=== PATIENT | female | born 1995 | race Caucasian/White ===

== ENCOUNTER 2024-06-03 11:27 | Outpatient (REF) | payer OTHER, SELFPAY ==
--- NOTE | ~2024-06-03 | US_ITS ---
EXAMINATION: US TRIPLEX LOWER EXTREMITY, RIGHT CLINICAL INFORMATION: Right calf pain COMPARISON: None available. TECHNIQUE: Color-flow triplex imaging with spectral analysis and compression Doppler were performed on the right lower extremity. FINDINGS: Respiratory variation, normal compression and augmented flow are noted throughout the right lower extremity. The visualized common femoral vein, superficial femoral vein, profunda femoral vein, popliteal vein and midcalf peroneal and posterior tibial venous segments show no evidence of deep venous thrombosis. There is no Stone's cyst. US/US venous duplex LE RT IMPRESSION: No evidence of deep venous thrombosis involving the right lower extremity. Electronically signed by: Dawit Ibrahim MD 06/03/2024 12:59 PM EDT
== END 2024-06-03 11:28 | disposition home or self-care (01) ==
LOC: HO.US 11:27
PROVIDERS: Visit Provider Physician Assistant Medical
DX: M79.661 Pain in right lower leg (principal)
CPT/HCPCS: 93971

== ENCOUNTER 2024-09-30 17:14 | Outpatient (REF) | payer SELFPAY ==
--- NOTE | ~2024-09-30 | XR_ITS ---
CLINICAL HISTORY: COUGH, SOB 2 view chest x-ray Comparison: None Findings: No consolidation or effusion. Heart size is normal. No acute fracture. IMPRESSION: 1. No acute findings. This document has been electronically signed by: Rajesh Godinez MD on 09/30/2024 18:08:16
== END 2024-09-30 17:15 | disposition home or self-care (01) ==
LOC: HO.XRAY 17:14
PROVIDERS: Visit Provider Physician Assistant Medical
DX: R05.9 Cough, unspecified (principal)
CPT/HCPCS: 71046

== ENCOUNTER → 2024-09-30 17:50 | Outpatient (BNV) | payer SELFPAY | PROVIDERS: Visit Provider Specialist | DX: R05.9 Cough, unspecified (principal) | CPT/HCPCS: 71046 ==

== ENCOUNTER 2024-12-07 09:31 | Outpatient (REF) | payer OTHER, SELFPAY ==
--- NOTE | ~2024-12-07 | MR_ITS ---
CLINICAL HISTORY: S93.402A - Sprain of unspecified ligament of left ankle, initial encounter MR left ankle without gadolinium Comparison: None Findings: No acute fracture or pathologic bone lesion. Small/physiological posterior subtalar joint effusion. Chronic grade 2 sprain of the anterior talofibular ligament. Mild thickening of the distal calcaneofibular ligament due to chronic grade 2 sprain. Grade 1, to low-grade, grade 2 sprain of the deep deltoid ligament. Syndesmotic and spring ligaments are intact. Small amount of fluid in the flexor hallucis longus tendon sheath is likely reactive in nature. Flexor, extensor, and peroneal tendons are intact. Achilles tendon is intact. Medial, lateral, and central bands of the plantar fascia are intact. IMPRESSION: 1. Chronic grade 2 sprain of the anterior talofibular and calcaneofibular ligaments. 2. Grade 1 sprain versus low-grade partial-thickness tear of the deep deltoid ligament. This document has been electronically signed by: Carolyn Hopper MD on 12/08/2024 12:32:48
--- OUTSIDE RECORDS SUMMARY | 2024-12-07 10:48 | XMS_ITS | Patient Health Record ---
Author Organization [facility] [place] [address] Care Team Providers Care Senior Mobile Developer Name Role Phone Out of Area, Provider Primary Care Provider Unav ailable Fidel Maya Unavailable Unavailable Allergies Allergen (clinical drug ingredient) Drug/Non Drug Allergy documented on EMR Reaction Allergy Type Onset Date Status Azithromycin Unknown Drug Allergy Acti ve Reason For Referral No Information Medications Medication SIG (Take, Route, Frequency, Duration) Notes Start Date End Date Status Aimovig 140 Dose 70 MG/ML 1 ml Subcutaneous for 30 day(s) 140 mg (2 x 70 mg/mL single-dose prefilled autoinjector) [facility] [id number] 07/07/2018 Active Emgality Loading Dose Syringe 120 mg/mL 2 Subcutaneous injection undefined 07/21/2018 Active Emgality Maintenance Syringe 120 mg/mL 1 Subcutaneous injection monthly for 30 days undefined 07/21/2018 Active Albuterol Sulfate HFA Active Aimovig 140 Dose 70 MG/ML 1 ml Subcutaneous for 30 day(s) Active Magnesium Active Asmanex HFA Active Riboflavin Active NuvaRing 0.12-0.015 MG/24HR 1 ring Vaginal for 30 day(s) Not-Taking Social History Tobacco Use: Social History Observation Description Date Details (start date - stop date) Never Smoker NA - NA Tobacco Use/Smoking Question Answer Notes Are you a nonsmoker Plan Of Treatment No Information Insurance Providers Payer Name Payer Address Payer Phone Subscriber Number Group Number Insured Name Patient Relationship to Insured Coverage Start Date Coverage End Date [facility] [address] [place] [address] [id number] Naya Steiner Self - patient is the insured Medical (General) History Surgical History Surgery Date(Month/Year) Hospitalization History Reason Date(Month/Year)
--- OUTSIDE RECORDS SUMMARY | 2024-12-07 10:48 | XMS_ITS | Clinical Summary ---
Author Organization [facility] [address] [place] [address] [place] [phone] Phone Care Team Providers Care Gallery Or Museum Guide Name Role Phone Lindsay Malcolm MD Primary Care Provider Allergies Active Allergy Reactions Criticality Noted Date Comments Azithromycin GI intolerance 05/23/2016 Wheat 05/24/2013 Medications albuterol HFA (PROAIR HFA ; PROVENTIL HFA ; VENTOLIN HFA) 90 mcg/actuation inhaler Inhale 2 puffs by mouth every 4 (four) hours if needed. 05/12/2024 Active levothyroxine (SYNTHROID, LEVOTHROID) 25 mcg tabletIndication s:Hypothyroidism , unspecified type TAKE 1 TABLET BY MOUTH EVERY DAY 90 tablet 1 08/20/2024 Active Active Problems Problem Noted Date Diagnosed Date Vitamin D deficiency 09/18/2020 Subclinical hypothyroidism 09/18/2020 Asthma, mild intermittent 11/17/2019 Overview (09/06/2024): Triggered by viral URI or occasionally exercise, uses albuterol PRN Migraine headache 11/17/2019 Immunizations Name Administration Dates Next Due DTP 03/29/1998, 5,1993,10/29,1993 TIlU-VOH-XYS (Pentacel) 2mo to less than 5yo 04/28/1995,1993,1993,07/29 HPV 9-valent (Gardisil) 9yo to less than 46yo 06/06/2008,03/30/2008 Hepatitis B (Afahxvp-Q-Vofxz , Recombivax HB-Adult) 19yo and older 10/19/2020 Hepatitis B Pediatric (Enger ix B; Recombivax HB) to less than 20 yo 04/28/1995,03/29/1995,1993 Influenza, Unspecified 06/24/2021 MMR, measles mumps and rubel la Live (Priorix; M-M-R II) 12mo and older 03/29/1998,04/28/1995 Meningococcal MCV4P 06/06/2008 Moderna SARS-CoV-2 COVID-19, mRNA, LNP-S, preservative free 09/13/2021 OPV 03/29/1998, 4,1993,07/29 Pneumococcal polysaccharide 23 valent (Pneumovax 23) 2yo and older 11/13/2017 Td Tetanus diptheria (Tdvax) 7yo and older 03/18/2003 Tdap Tetanus diptheria acell ular pertussis (Boostrix; Adacel) 7yo and older 09/23/2018,06/06/2008 Varicella live (Varivax) 12m o and older 03/29/1995 Surgical History Surgery Date Site/Laterality Comments WISDOM TOOTH EXTRACTION PROCEDURE: HISTORICAL WISDOM TEETH EXTRACTION COLONOSCOPY 2010 PROCEDURE: HISTORICAL COLONOSCOPY OTHER SURGICAL HISTORY 2010 PROCEDURE: OUTSIDE ENDOSCOPY Medical History Medical History Date Comments New onset of headaches 2015 DX:New on set of headaches; COMMENT: due to concussion in December Asthma DX:Asthma Hx of Sherrie thyroiditis 2022 DX:H x of Sherrie thyroiditis Family History Medical History Relation Name Comments Other: multiple myloma Aunt maternal No Known Problems Brother Hyperlipidemia Father Colon cancer Maternal Grandfather Brain Aneurysm Maternal Grandmother Hypertension Mother Mental illness Mother Thyroid disease Mother Other: Dm Paternal Grandfather Other: stroke Paternal Grandmother Stroke Paternal Grandmother Other cancer Sister skin cancer Breast cancer Neg Hx Relation Name Status Comments Aunt maternal Alive Brother Alive Father Alive Maternal Grandfather Maternal Grandmother Mother Alive Paternal Grandfather Alive Paternal Grandmother Sister Alive Social History Tobacco Use Types Packs/Day Years Used Date Smoking Tobacco: Never Smokeless Tobacco: Never Alcohol Use Standard Drinks/Week Comments Yes 0 (1 standard drink = 0.6 oz pur e alcohol) Comments Unknown Sex and Gender Information Value Date Recorded Sex Assigned at Not on file Legal Sex Female 9:29 PM EST Gender Identity Not on file Sexual Orientation Not on file Obstetrics History Last Filed Vital Signs Vital Sign Reading Time Taken Comments Blood Pressure 124/89 05/11/2024 3:36 PM EDT Pulse 79 05/11/2024 3:36 PM EDT Temperature - - Respiratory Rate - - Oxygen Saturation - - Inhaled Oxygen Concentration - - Weight 77.1 kg (170 lb) 05/11/2024 3:36 PM EDT Height 157.5 cm (5' 2 ) 05/11/2024 3:36 PM EDT Body Mass Index 31.09 05/11/2024 3:36 PM EDT Plan of Treatment Upcoming Encounters Date Type Department Care Team (Late st Contact Info) Description 12/22/2024 9:15 AM EDT Office Visit Endocrinology - [facility] [address] [place] [phone] Cintia Singh MD [address] [place] [phone] Health Maintenance Due Date Last Done Comments HPV Vaccines (3 - 2-dose series) 09/29/2008 06/06/2008, 03/30/2008 Pneumococcal Vaccine: Pediatrics (0 to 5 Years) and At-Risk Patients (6 to 64 Years) (2 of 2 - PCV) 11/13/2018 11/13/2017 Depression Screening 09/13/2022 HIV Screening 09/13/2022 Hepatitis C Screening 09/13/2022 Social Influencers of Health Screening 09/13/2022 Cervical Cancer Screening: Pap Smear 04/22/2024 04/22/2021, 04/19/2021, 06/29/2018 COVID-19 Vaccine ( season) 2024 09/13/2021, 12/07/2020, 11/16/2020 Influenza Vaccine (#1) 2024 06/24/2021 DTaP,Tdap,and Td Vaccines (8 - Td or Tdap) 09/23/2028 09/23/2018, 06/06/2008, 03/18/2003, Additional history exists Cholesterol Screening (Lipid Panel) 01/10/2029 01/11/2024 Varicella Vaccines Aged Out 03/29/1995 No longer eligible based on patient's age to complete this topic HIB Vaccines Completed 04/28/1995, 12/04, 1993, Additional history exists IPV Vaccines Completed 03/29/1998, 04/05, 1993, Additional history exists MMR Vaccines Completed 03/29/1998, 04/28/1995 Meningococcal ACWY Vaccine Aged Out 06/06/2008 N o longer eligible based on patient's age to complete this topic Hepatitis B Vaccines Completed 10/19/2020, 04/28/1995, 03/29/1995, Additional history exists Hepatitis A Vaccines Aged Out No long er eligible based on patient's age to complete this topic Meningococcal B Vacine Aged Out No lo nger eligible based on patient's age to complete this topic RSV Immunization Patients Under 20 months Aged Out No longer eligible based on patient's age to complete this topic Procedures Procedure Name Priority Date/Time Associated Diagnosis Comments HEMOGLOBIN A1C Routine 12/01/2024 11:02 AM EST Obesity (BMI 30-39.9) THYROID STIMULATING HORMONE Routine 12/01/2024 11:02 AM EST Subclinical hypothyroidism THYROXINE FREE Routine 12/01/2024 11:02 AM EST Subclinical hypothyroidism LIPID PANEL Routine 01/11/2024 HM PAP SMEAR Routine 04/22/2021 from Last 3 Months or Most Recently Relevant to Health Maintenance Results * Thyroid stimulating hormone (12/01/2024 11:02 AM EST) TSH 3.71 0.40 - 4.00 mcIU/mL LAB CHEMISTRY METHOD 12/01/2024 2:[address] [facility] Blood Venous blood specimen / Unknown Venipuncture / Unknown 12/01/2024 11:02 AM EST 12/01/2024 11:02 AM EST Cintia Singh MD LAB BLOOD ORDERABLES Final Resul t Performing Organization Address City/Va Hospital/ZIP Co de Phone Number [facility] [address] [place] [address], [place] [phone] * Thyroxine free (12/01/2024 11:02 AM EST) Free T4 1.18 0.70 - 1.80 ng/dL LAB CHEMISTRY METHOD 12/01/2024 2:36 PM EST [facility] Blood Venous blood specimen / Unknown Venipuncture / Unknown 12/01/2024 11:02 AM EST 12/01/2024 11:02 AM EST Cintia Singh MD LAB BLOOD ORDERABLES Final Resul t Performing Organization Address [facility] Hospital/[facility] Co de Phone Number [facility] [address] [place] [address], [place] [phone] * Hemoglobin A1c (12/01/2024 11:02 AM EST) Pathologist [facility] Hemoglobin A1C 5.3 <6.5 % LAB CHEMISTRY METHOD 12/01/2024 1:40 PM EST [facility] Mean Bld Glu Estim. 105 mg/dL LAB CHEMISTRY METHOD 12/01/2024 1:40 PM EST [facility] Blood Venous blood specimen / Unknown Venipuncture / Unknown 12/01/2024 11:02 AM EST 12/01/2024 11:02 AM EST Cintia Singh MD LAB BLOOD ORDERABLES Final Resul t Performing Organization Address City/Va Hospital/ZIP Co de Phone Number [facility] [address] [place] [address], [place] [phone] * (ABNORMAL) Lipid panel (01/11/2024) Pathologist [facility] LDL/HDL Ratio 202(A) 0 - 4 Triglycerides 48 0 - 150 mg/dL Cholesterol 159 0 - 200 mg/dL HDL 72 >=40 mg/dL LDL Cholesterol 78 0 - 100 mg/dL Blood Venous blood specimen / Unknown Historical Provider LAB BLOOD ORDERABLES Reyna l Result * Pap Smear (04/22/2021) Pap smear Negative, Abstracted Historical Provider HEALTH MAINTENANCE Final Result from Last 3 Months or Most Recently Relevant to Health Maintenance Insurance [employer] [facility] [place] [address] [place] [address] Care Teams Gallery Or Museum Guide Relationship Specialty Start Date End Date Lindsay Malcolm MD [address] [place] [address] PCP - General Internal Medicine 12/20/21
== END 2024-12-07 09:32 | disposition home or self-care (01) ==
LOC: HO.MRI 09:31
PROVIDERS: Visit Provider Physician Assistant
DX: S93.402A Sprain of unspecified ligament of left ankle, initial encounter (principal)
CPT/HCPCS: 73721

== ENCOUNTER → 2024-12-07 09:34 | Outpatient (BNV) | payer OTHER, SELFPAY | PROVIDERS: Visit Provider Radiology Diagnostic Radiology | DX: S93.492A Sprain of other ligament of left ankle, initial encounter (principal) | CPT/HCPCS: 73721 ==